=== PATIENT | male | born 1970 | race Caucasian/White ===

== ENCOUNTER → 2023-02-17 16:21 | Outpatient (CLI) | payer OTHER, SELFPAY ==
[2023-02-17 12:39] LABS: Basophils % 0.3 % (0.1-2.0); Eosinophils # 0.1 K/mm3 (0.0-0.4); Eosinophils % 1.5 % (0.1-12.0); Hematocrit 49.4 % (42.0-52.0); Hemoglobin 15.7 g/dL (14.1-18.0); Lymphocytes # 2.3 K/mm3 (0.7-4.5); Mean Corpuscular HGB Conc 31.7 g/dL (31.8-35.4); Mean Corpuscular Hemoglobin 29.3 pg (27.0-31.2); Mean Corpuscular Volume 92.4 fl (80-94); Mean Platelet Volume 9.2 fl (7.4-10.4); Monocytes # 0.5 K/mm3 (0.1-1.0); Monocytes % 6.4 % (1.7-9.3); Neutrophils # 4.6 K/mm3 (1.8-7.8); Neutrophils % 60.8 % (37.0-80.0); Platelet Count 318 K/mm3 (142-424); Red Blood Count 5.35 M/mm3 (4.60-6.20); Red Cell Distribution Width 13.6 % (11.5-17.5); White Blood Count 7.6 K/mm3 (4.8-10.8)
[2023-02-17 13:07] LABS: Alanine Aminotransferase 50 U/L (12-78); Albumin Level 4.6 g/dl (3.5-5.0); Albumin/Globulin Ratio 1.3 (1.1-1.8); Alkaline Phosphatase 103 U/L (38-126); Aspartate Amino Transferase 52 U/L (17-59); Bilirubin,Total 0.5 mg/dl (0.2-1.3); Blood Urea Nitrogen 21 mg/dl (9-20); Calcium 9.5 mg/dl (8.4-10.2); Carbon Dioxide 32 mmol/L (22.0-30.0); Chloride 101 mmol/L (98-107); Chol/HDL Ratio 3.4 (1-3.5); Cholesterol 184 mg/dl (140-200); Estimated Glomerular Filt Rate 78 ml/min (>60); GFR (African American) 95 ML/MIN (>60); Globulin 3.6 g/dL (1.3-3.2); Glucose 102 mg/dl (74-100); HDL Cholesterol 54 mg/dl (40-60); Sodium 143 mmol/L (136-145); Total Protein,Serum 8.2 g/dl (6.3-8.2); Triglycerides 177 mg/dl (30-150); VLDL Cholesterol 35 mg/dL (0-40)
[2023-02-17 13:18] LABS: Direct LDL Cholesterol 81.77 mg/dL (100-129)
[2023-02-17 13:26] LABS: 25-OH Vitamin D, Total 29.9 ng/mL (30-100)
[2023-02-17 13:38] LABS: Prostate Specific Ag Screen 0.4 ng/ml (0.0-4.0); Thyroid Stimulating Hormone 1.86 uIU/mL (0.465-4.68)
[2023-02-21 20:12] LABS: HCV Genotype Charge YES; Hepatitis C Genotype 1a (.)
[2023-02-24 11:27] LABS: HIV Screen 4th Generation wRfx NON REACTIVE
[2023-02-24 11:28] LABS: Hep A Ab, Total Negative
[2023-02-24 11:29] LABS: Hep B Core Ab, Total Positive; Hepatitis B Surface Antigen Negative
[2023-02-24 11:30] LABS: Hep B Surface Ab, Qual Reactive
[2023-02-24 11:31] LABS: Hepatitis C Antibody Reactive
[2023-02-24 11:34] LABS: Fibrosis Score 0.28; Fibrosis Stage F1
[2023-02-24 11:35] LABS: Necroinflammat Activity Grade AO-A1; Necroinflammat Activity Score 0.28
[2023-02-24 11:36] LABS: Alpha 2-Macroglobulins, Qn 388; Apolipoprotein A-1 159; Bilirubin, Total 0.1; Haptoglobin 173
[2023-02-24 11:37] LABS: ALT (SGPT) P5P 49; GGT 84
--- NOTE | 2023-03-10 13:39 | PC.NURSE ---
I have called and left Odette several messages with no return calls about a HST.
== END ==
PROVIDERS: PCP Nurse Practitioner Family; Visit Provider Nurse Practitioner Family
DX: I10 Essential (primary) hypertension (principal); R53.83 Other fatigue; R40.0 Somnolence; B34.8 Other viral infections of unspecified site; E55.9 Vitamin D deficiency, unspecified; Z12.5 Encounter for screening for malignant neoplasm of prostate; Z11.4 Encounter for screening for human immunodeficiency virus [HIV]
CPT/HCPCS: 80053; 80061; 81596; 82306; 84443; 85025; 86703; 86704; 86706; 86708; 87340; 87380; 87522; 87902; G0103; G0432

== ENCOUNTER 2023-09-13 10:58 | Outpatient (CLI) | payer OTHER, SELFPAY ==
--- NOTE | 2023-09-13 | CA_ITS ---
APPROVED REPORT Exam: Pharmacologic Technologist: Fabi Han, Ht: 5 ft 7 in Wt: 208 lbs BSA: 2.06 m2 HR: 71 bpm BP: 176/111 mmHg Rhythm: NSR Medical History Medical History: HTN, Smoking Medications: Suboxone,,,,, Viagra,,,,, Allergies: No known drug allergies Cardiac Risk Factors: HTN, FHX of CAD, Smoking Stress Test Details Test: LEXISCAN HR Resting HR: 71 bpm Max Heart Rate (APMHR): 166 bpm Max HR Achieved: 113 bpm Target HR (85% APMHR): 141 bpm % of APMHR: 68 Recovery HR: 87 bpm BP Resting BP: 176/111 mmHg Max BP: 176/111 mmHg Recovery BP: 158.0/98.0 mmHg ECG Resting ECG: Normal sinus rhythm Stress ECG: No significant ST changes Clinical Exercise duration: 04:02 min Highest Stage Achieved: Exercise capacity: 1.0 METs Stress ECG Conclusion During infusion patient had dyspnea. No arrhythmias/ectopy. ST changes: None Conclusion: Unremarkable Lexiscan stress test. Myoview images reported separately. Of note, discussed HTN with Andres Talley PA-C in cardiology clinic. Will adjust meds at follow up the next day in clinic Test Summary REST . . . . . . . Sitting REST . . . . . . . Sitting REST . . . . . . . Sitting REST 05:39 . . 71 . 176/111 . . Stage 1 . . . . . . . Myoview Injected Stage 1 01:00 . . 110 . . . . Stage 2 01:00 . . 102 . 134/ 93 . . Stage 3 01:00 . . 97 . 175/102 . . Stage 4 01:00 . . 88 . 164/110 . . Stage 4 01:02 . . 90 . 164/110 . Stop exercise at 04:02 RECOVERY 01:00 . . 90 . 157/103 . . RECOVERY 02:00 . . 97 . 157/103 . . RECOVERY 03:00 . . 77 . 157/103 . . RECOVERY 04:00 . . 75 . 157/103 . . RECOVERY 05:00 . . 75 . 159/107 . . RECOVERY 05:15 . . 72 . 159/107 . . Electronically signed by : Candy Vitale MD 09/14/2023 11:32:31
--- NOTE | 2023-09-13 10:58 | NM_ITS ---
APPROVED REPORT Exam: Nuclear Stress Test Indication: SOB, HTN, Former tobacco use, Family history Patient Location: Outpatient Stress Tech: Petra Han NM Tech:Lorena Castañeda, ARRT, RT (R)(N) Ht: 5 ft 8 in Wt: 208 lbs HR: 71 bpm BP: 176/111 mmHg BSA: 2.08 m2 Rhythm: NSR TID: 0.92 BMI: 31.6 History: SOB, HTN, Former tobacco use, Family history Procedure: Patient received 0.4 mg of intravenous AdenosineLexiscan, resting heart rate 71 bpm, resting blood pressure 176/111 mmHg, with Lexiscan maximum heart rate achieved was 113 bpm which is % of the maximum predicted heart rate and blood pressure was 176/111 mmHg. With Lexiscan, patient denied any complaint of chest pain. Cardiac Stress and Resting SPECT Images: Cardiac Stress and Resting SPECT images were obtained using technetium 99m Myoview 31.1 mCi stress and 10.02 mCi at rest. Technically difficult study due to reduced radiotracer uptake at rest and in supine positions. This may affect the diagnostic interpretation of the study findings. Resting and stress imaging in supine and prone positions demonstrate no definite evidence of fixed or reversible perfusion defects. Gated imaging demonstrates mild reduction in global and regional LV systolic function. LVEF is calculated at 45%. Of note, the LVEF calculation may be inaccurate in the setting of technically difficult study. Conclusion: Technically difficult study. No definite evidence of fixed or reversible perfusion defects. Gated imaging demonstrates mild reduction in global and regional LV systolic function. LVEF is calculated at 45%. Of note, the LVEF calculation may be inaccurate in the setting of technically difficult study. Electronically signed by : Candy Vitale MD 09/14/2023 11:35:58
--- NOTE | 2023-09-13 12:36 | CA_ITS ---
APPROVED REPORT EXAM: Comprehensive 2D, Doppler, and color-flow Echocardiogram Segmental Wall Installer: Blanca Becker RVT Ht: 5 ft 7 in Wt: 208lbs BSA: 2.06 BP: 118/52 mmHg Indications: CP,SOA,EX SMOKER 2D Dimensions LA Volume 41.30 mL LA Volume Index 20.05 mL/m2 (M/F) 16-34 M-Mode Dimensions RVDd 3.24 cm (0.9-2.6) LA Diam 3.72 cm (1.9-4.0) LVDd 4.79 cm (3.5-5.7) LVDs 2.87 cm (3.5-5.7) IVSd 1.17 cm (0.6-1.1) PWd 0.70 cm (0.6-1.1) EF (Teich) 70.70% FS 40.10% EDV (Teich) 107.00 mL TAPSE 2.64 (<1.7) ESV (Teich) 31.40 mL LV Diastology E Decel Time 207 (160-240 msec) E/A Ratio 1.1 Aortic Valve LORENA Index 1.32 cm2/m2 AoV Peak Alec. 114.0 (50-130 cm/s) AO Peak GR. 5.20 mmHg AO Mean GR. 3.00 (<5 mmHg) AO VTI 23.1 (18-25 cm) LORENA (VTI) 2.78 (2.5-4.5 cm2) Mitral Valve MV E Max Alec. 58.0 (40-130 cm/s) MV A Velocity 54.0 (40-130 cm/s) E/A Ratio 1.08 MV PHT 61.0 ms Pulmonary Valve PV Peak Velocity 67.0 (50-150 cm/s) Left Ventricle The left ventricle is normal size. The left ventricular systolic function is normal. The left ventricular ejection fraction is within the normal range. There is increased LV wall thickness. There is normal LV segmental wall motion. The left ventricular diastolic function is normal. LVEF is 55%. Right Ventricle The right ventricle is normal size. The right ventricular systolic function is normal. Atria The left atrium size is normal. The right atrium size is normal. There is no Doppler evidence of interatrial shunt. Aortic Valve The aortic valve is mildly thickened. There is no aortic valvular stenosis. Trace aortic regurgitation. Mitral Valve The mitral valve leaflets are mildly thickened. No evidence of mitral valve stenosis. There is no mitral valve regurgitation noted. Tricuspid Valve The tricuspid valve leaflets are thin and pliable. Trace tricuspid regurgitation. There is insufficient TR jet to estimate RVSP. Pulmonic Valve The pulmonary valve is normal in structure. Trace pulmonic regurgitation. Great Vessels The aortic root is normal in size. The ascending aorta is not well-visualized. IVC is normal in size and collapses >50% with inspiration. Pericardium There is no pericardial effusion. Other Information Study Quality: Fair Conclusion Normal biventricular systolic function. No significant valvular stenosis or regurgitation. Electronically signed by : Candy Vitale MD 09/15/2023 00:17:09
[2023-09-13] MEDS: ISOTOPE MYOVIEW (PER STUDY) 1 DOSE IV (13:03)
[2023-09-13] MEDS: SODIUM CHLORIDE 0.9% 10ML SYR (RAD ONLY) 10 ML IV ×2 (13:03→13:04)
[2023-09-13] MEDS: REGADENOSON 0.4MG/5ML SYRINGE 0.400000000000000022 MG IV (13:03)
== END 2023-09-13 23:59 ==
LOC: RAD 10:58
PROVIDERS: PCP Nurse Practitioner Family; Visit Provider Nurse Practitioner Family
DX: R06.02 Shortness of breath (principal); R07.89 Other chest pain
CPT/HCPCS: 78452; 93017; 93018; 93306; A9502; J2785

== ENCOUNTER 2025-06-18 16:00 | Outpatient (CLI) | payer OTHER, SELFPAY ==
[2025-06-18 21:25] LABS: Hematocrit 41.8 % (42.0-52.0); Hemoglobin 13.6 g/dL (14.1-18.0); Immature Granulocytes % 0.2 %; Mean Corpuscular HGB Conc 32.5 g/dL (31.8-35.4); Mean Corpuscular Hemoglobin 29.9 pg (27.0-31.2); Mean Corpuscular Volume 91.9 fl (80-94); Nucleated Red Blood Cells % 0 %; Platelet Count 206 K/mm3 (142-424); Red Blood Count 4.55 M/mm3 (4.60-6.20); Red Cell Distribution Width-SD 43.2 fL; White Blood Count 4.6 K/mm3 (4.8-10.8)
[2025-06-18 21:51] LABS: Alanine Aminotransferase 12 U/L (12-78); Albumin Level 4.6 g/dl (3.5-5.0); Albumin/Globulin Ratio 1.6 (1.1-1.8); Alkaline Phosphatase 76 U/L (38-126); Anion Gap 13.7 mEq/L (5-15); Aspartate Amino Transferase 23 U/L (17-59); Bilirubin,Total 0.6 mg/dl (0.2-1.3); Blood Urea Nitrogen 20 mg/dl (9-20); Calcium 9.3 mg/dl (8.4-10.2); Carbon Dioxide 29 mmol/L (22.0-30.0); Chloride 103 mmol/L (98-107); Cholesterol 150 mg/dl (140-200); Creatinine,Serum 1.10 mg/dl (0.66-1.25); Estimated Glomerular Filt Rate 69 ml/min (>60); GFR (African American) 84 ML/MIN (>60); Globulin 2.8 g/dL (1.3-3.2); Glucose 95 mg/dl (74-100); HDL Cholesterol 48 mg/dl (40-60); Potassium 4.7 mmoL/L (3.5-5.1); Sodium 141 mmol/L (136-145); Total Protein,Serum 7.4 g/dl (6.3-8.2); Triglycerides 136 mg/dl (30-150)
[2025-06-18 21:54] LABS: Hemoglobin A1C 5.0 % (4.0-6.0)
[2025-06-18 22:25] LABS: Thyroid Stimulating Hormone 1.80 uIU/mL (0.465-4.68)
[2025-06-18 22:41] LABS: Hepatitis C Ab Qual. W/ RFX REACTIVE (Negative)
[2025-06-20 04:23] LABS: Hepatitis B Surface Antigen Negative (Negative)
== END 2025-06-18 23:59 | disposition home or self-care (01) ==
LOC: LAB.DROPOF 06-19 18:20
PROVIDERS: PCP Nurse Practitioner Family; Visit Provider Nurse Practitioner Family
DX: I10 Essential (primary) hypertension (principal); R06.02 Shortness of breath; Z11.59 Encounter for screening for other viral diseases; E66.9 Obesity, unspecified; Z12.5 Encounter for screening for malignant neoplasm of prostate
CPT/HCPCS: 80053; 80061; 83036; 84443; 85025; 86803; 87340; 87389; 87522; G0103